=== PATIENT | male | born 1980 | race Caucasian/White ===

== ENCOUNTER 2018-12-26 22:02 | Emergency (ER) | payer OTHER ==
[2018-12-26 23:46] LABS: Appearance,Urine Clear (Clear); Bacteria,Urine Rare /hpf; Bilirubin,Urine Negative (Negative); Blood,Urine Negative (Negative); Color,Urine Yellow; Glucose,Urine (UA) Negative (Negative); Ketones,Urine Trace (Negative); Leukocyte Esterase,Urine Small (Negative); Mucus,Urine Few /hpf; Nitrite,Urine Negative (Negative); PH, Urine 6.5 (5.0-8.0); Protein,Urine 1+ (Negative); RBC,Urine 1 /hpf (0-5); Specific Gravity,Urine 1.042 (1.001-1.035); Sperm,Urine Few /hpf; Squamous Epithelial Cell,Urine <1 /hpf (0-4)
--- NOTE | 2018-12-27 00:45 | ED ---
Male Urogenital HPI - General Chief complaint: Urogenital Stated complaint: Hernia Time Seen by Provider: 12/27/18 00:45 Source: patient, RN notes reviewed Mode of arrival: ambulatory Limitations: no limitations - History of Present Illness Initial comments: This is a 38-year-old male the ER for evaluation of scrotal pain bilateral scrotal pain and scrotal tenderness, episodic for 3-4 days now. Patient: Without pain. Pain is seems to be worsening positional worse after eating etc. No dysuria. No fevers. No other complaints MD Complaint: testicle pain, testicle swelling -: days(s) (4) Location: right testicle, left testicle Severity: mild Severity scale (1-10): 3 Quality: aching Consistency: constant Improves with: none Worsens with: none Reports: swelling - Related Data Previous Rx's Medication Instructions Recorded HYDROcodone/APAP 5-325MG [[place] 5] 1 each PO Q4HR PRN #15 tab 12/02/15 Ibuprofen [Motrin] 600 mg PO Q6HR PRN #20 tab 12/02/15 Allergies Allergy/AdvReac Type Severity Reaction Status Date / Time No Known Allergies Allergy Verified 12/02/15 20:38 Review of Systems ROS Statement: Those systems with pertinent positive or pertinent negative responses have been documented in the HPI. ROS Other: All systems not noted in ROS Statement are negative. Past Medical History Past Medical History: No Reported History History of Any Multi-Drug Resistant Organisms: None Reported Past Surgical History: Orthopedic Surgery Additional Past Surgical History / Comment(s): right knee acl and meniscus, Past Psychological History: No Psychological Hx Reported Smoking Status: Current every day smoker Past Alcohol Use History: None Reported Past Drug Use History: None Reported General Exam - General Exam Comments Initial Comments: Scrotum is negative for significant findings on physical exam no rash no tenderness Limitations: no limitations General appearance: alert, in no apparent distress Head exam: Present: atraumatic, normocephalic, normal inspection Eye exam: Present: normal appearance, PERRL, EOMI. Absent: scleral icterus, conjunctival injection, periorbital swelling ENT exam: Present: normal exam, mucous membranes moist Neck exam: Present: normal inspection. Absent: tenderness, meningismus, lymphadenopathy Respiratory exam: Present: normal lung sounds bilaterally. Absent: respiratory distress, wheezes, rales, rhonchi, stridor Cardiovascular Exam: Present: regular rate, normal rhythm, normal heart sounds. Absent: systolic murmur, diastolic murmur, rubs, gallop, clicks GI/Abdominal exam: Present: soft, normal bowel sounds. Absent: distended, tenderness, guarding, rebound, rigid Extremities exam: Present: normal inspection, full ROM, normal capillary refill. Absent: tenderness, pedal edema, joint swelling, calf tenderness Back exam: Present: normal inspection Neurological exam: Present: alert, oriented X3, CN II-XII intact Psychiatric exam: Present: normal affect, normal mood Skin exam: Present: warm, dry, intact, normal color. Absent: rash Course Vital Signs 12/26/18 12/27/18 22:43 00:46 Temperature 98.2 F 97.8 F Pulse Rate 73 67 Respiratory 16 18 Rate Blood Pressure 135/91 116/80 O2 Sat by Pulse 96 95 Oximetry - Reevaluation(s) Reevaluation #1: 12/27/18 01:13 Medical record reviewed Reevaluation #2: 12/27/18 01:13 Patient given instructions, follow-up with urology questions answered Medical Decision Making - Medical Decision Making 38 male the ER for evaluation of scrotal pain testicular pain swelling. Patient does have bilateral varicocele. With urology given urine is negative - Lab Data Lab Results 12/26/18 Range/Units 22:46 Urine Color Yellow Urine Appearance Clear (Clear) Urine pH 6.5 (5.0-8.0) Ur Specific [place] 1.042 H (1.001-1.035) Urine Protein 1+ H (Negative) Urine Glucose (UA) Negative (Negative) Urine Ketones Trace H (Negative) Urine Blood Negative (Negative) Urine Nitrite Negative (Negative) Urine Bilirubin Negative (Negative) Urine Urobilinogen 4.0 (<2.0) mg/dL Ur Leukocyte Esterase Small H (Negative) Urine RBC 1 (0-5) /hpf Urine WBC 12 H (0-5) /hpf Ur Squamous Epith Cells <1 (0-4) /hpf Urine Bacteria Rare H (None) /hpf Urine Mucus Few H (None) /hpf Urine Sperm Few H (None) /hpf - Radiology Data Radiology results: report reviewed (Ultrasound scrotum positive for varicocele), image reviewed Disposition Clinical Impression: Bilateral varicoceles Disposition: HOME SELF-CARE Condition: Good Instructions (If sedation given, give patient instructions): Varicocele (ED) Is patient prescribed a controlled substance at d/c from ED?: No Referrals: Nico Dawkins MD [STAFF PHYSICIAN] - 1-2 days
--- NOTE | 2018-12-27 00:54 | US ---
EXAM: US Scrotum CLINICAL HISTORY: Pain TECHNIQUE: Real-time ultrasound of the scrotum with color Doppler and image documentation. COMPARISON: No relevant prior studies available. EXAM MEASUREMENTS: TESTICLES: Right Testicle: 3.1 x 2.0 x 4.3 cm Left Testicle: 4.2 x 2.4 x 3.5 cm EPIDIDYMIS HEAD: Right Epididymis: .6 x .7 x .8 cm Left Epididymis: .9 x .8 cm Doppler performed to assess for testicular vascularity; good bilateral color flow and waveforms are seen. Presence of hydroceles: No Presence of varicoceles: Suggestion of varicoceles. IMPRESSION: Suggestion of bilateral varicoceles. Otherwise unremarkable exam with blood flow seen to the bilateral testicles.
[2018-12-27 00:58] VITALS: RESP 18
[2018-12-27 02:07] VITALS: BP 122/80; PULSE 78; TEMP 97.9
== END 2018-12-27 02:07 | disposition home or self-care (01) ==
LOC: EC 22:02
DX: I86.1 Scrotal varices (principal); N50.811 Right testicular pain; N50.812 Left testicular pain; F17.200 Nicotine dependence, unspecified, uncomplicated; Z98.890 Other specified postprocedural states
CPT/HCPCS: 76870; 81001; 87086; 93975; 99284

== ENCOUNTER → 2019-01-30 | Outpatient (CLI) | payer BC, OTHER ==
--- NOTE | 2019-01-30 22:49 | CONS ---
CONSULTATION REASON FOR CONSULTATION: Sleep apnea. This patient is 38; asked to come in upon the request of his and his primary care because of concern about sleep apnea, as the patient has loud snoring, quits breathing at night, has excessive fatigue and tiredness and sleepiness during the day. His [place] score is 5. He works in [employer] and lives in [place], drives back and forth around 35-[address] back he gets tired, yet has never fallen asleep. He goes to bed around 10 p.m., wakes up at 4:30 a.m. in the morning. No other comorbidities otherwise. No substance abuse. No alcoholism. He is a smoker. PAST MEDICAL HISTORY: Hypertension. PAST SURGICAL HISTORY: Right knee surgery for meniscus. DRUG ALLERGIES: NOT KNOWN. MEDICATIONS: Blood pressure pill that he takes twice a day. SOCIAL HISTORY: smoker. No history of alcoholism. No history of IV drugs. FAMILY HISTORY: Negative for sleep apnea. REVIEW OF SYSTEMS: Fourteen-point review of systems was done. Positive findings are all mentioned above in the history of present illness. PHYSICAL EXAMINATION: VITAL SIGNS: BP is 122/79, pulse 65, respirations 16, temperature 98.3, saturation 95% on room air. Height is 5 feet 9 inches, weight 210. [place] score is 5. BMI is 31. Neck size 17-1/2 inches. GENERAL APPEARANCE: Calm, comfortable. HEAD: Atraumatic, normocephalic. NECK: Supple. No JVD. No goiter or neck masses. Mallampati class IV. LUNGS: Clear to auscultation. HEART: Heart sounds are regular rate and rhythm. Normal S1, S2. No S3, S4. No murmurs. ABDOMEN: Soft, nontender. No organomegaly. EXTREMITIES: No edema. No cyanosis or clubbing. NEUROLOGIC: He is alert and oriented x3. There are no focal neurological deficits. PSYCH: Negative for anxiety or depression. IMPRESSION: 1. Loud snoring along with hypersomnia. Consider obstructive sleep apnea. 2. Hypertension. PLAN: 1. Proceed with a home sleep study to better investigate this patient for sleep apnea syndrome. 2. Encourage weight loss. 3. Implement good sleep hygiene measures. 4. Will continue to follow. MMODL / IJN: [id number] /
== END | disposition home or self-care (01) ==
LOC: SLEEP 16:42
PROVIDERS: ATTEND Internal Medicine Critical Care Medicine
DX: G47.10 Hypersomnia, unspecified (principal); R06.83 Snoring; I10 Essential (primary) hypertension
CPT/HCPCS: 99211